=== PATIENT | female | born 1970 | race Caucasian/White ===

== ENCOUNTER 2017-07-15 14:16 | Observation (INO) | payer MEDICARE, MEDICAID ==
[~2017-07-15] VITALS: Ht 157.5 cm; Wt 50.0 kg
[2017-07-15 14:17] VITALS: BP 155/71; PULSE 91; RESP 16; TEMP 98.1; O2SAT 98
[2017-07-15] MEDS ORDERED: SODIUM CHLOR 0.9% 1000 ML INJ 1,000 ML IV SCH (14:58)
[2017-07-15] MEDS ORDERED: ONDANSETRON HCL 4 MG/2 ML VIAL IVP ONE (15:00)
[2017-07-15] MEDS ORDERED: HYDROmorphone HCL PF 2 MG/ML VIAL IV PUSH ONE ×2 (15:00→16:45)
[2017-07-15] MEDS ORDERED: SODIUM CHLORIDE 0.9% FLUSH 10 ML FLUSH IV FLUSH PRN ×2 (15:00→17:00)
[2017-07-15] MEDS ORDERED: ONDA8TAB7 PO (15:03)
[2017-07-15] MEDS ORDERED: AMIT25TA9 PO (15:03)
[2017-07-15] MEDS ORDERED: BACL20TA PO (15:03)
[2017-07-15] MEDS ORDERED: OXYC15TA PO (15:03)
[2017-07-15] MEDS ORDERED: CLON0.5T PO (15:03)
[2017-07-15 15:07] VITALS: O2SAT 100
[2017-07-15 15:08] VITALS: BP 148/87; PULSE 68; RESP 12; O2SAT 100
--- NOTE | 2017-07-15 15:20 | PD ---
HPI Chief Complaint: Abdominal Pain Time Seen by Provider: 14:36 Travel History International Travel<30 days: No Contact w/Intl Traveler<30days: No Traveled to known affect area: No History of Present Illness HPI The patient is a 47-year-old female who presents to the emergency department for a 4 year history of increasing abdominal pain and decreased appetite. The patient has a history of Crohn's disease with previous total colectomy that was performed by Dr. Pratt with subsequent ileostomy. Patient states she has a history of small gut syndrome via the ileostomy, according to the patient. The patient states she's had ongoing pain for the last 8 years, last had an endoscopy performed by physician at [place], [place]. The patient has recently been followed by a physician in [place], [place] and recently had 2 CTs of the abdomen and pelvis, one performed in [place] and one performed in [place], that she states were unremarkable. However, the patient states that her pain and decreased appetite with weight loss or secondary to the umbilical hernia. She has seen Dr. Pratt who planned to fix the umbilical hernia in the near future. However, the patient apparently made comments in regards to hospice and palliative care for ongoing pain with perhaps thoughts of ending it all, therefore, was referred to the emergency department by Dr. Pratt to be evaluated by psychiatry, medically cleared her possible definitive operative management. The patient does note a weight loss, states she has decreased ability to eat with increasing pain upon eating. The patient apparently had a small bowel follow-through which was unremarkable, there is no evidence of stenosis. However, she has not had an endoscopy 8 years. She denies any actual suicidal or homicidal ideation, but does note increasing depression secondary to her persistent pain. PFSH Past Medical History Arthritis: Yes Asthma: Yes Blood Disorders: No Cancer: No Cardiovascular Problems: No Diminished Hearing: Yes (HEARING ONLY 30% OUT OF THE LEFT EAR) Endocrine: No Gastrointestinal Disorders: Yes Genitourinary: No Immune Disorder: No Psychiatric: No Reproductive: No Respiratory: Yes Seizures: Yes Thyroid Disease: Yes (HYPO- RESOLVED) ?: Not LMP: Menopause : 3 Para: 1 Miscarriage: 1 Past Surgical History Appendectomy: Yes Other Surgery: Yes (TUBAL LIGATION-ILLEOSTOMY, TUBAL REMOVAL ) Social History Alcohol Use: No Tobacco Use: Yes (1/2 PPD) Substance Use: No Allergies-Medications (Allergen,Severity, Reaction): Coded Allergies: Penicillins (Verified Allergy, Severe, Rash, 07/15/17) RASH AND PALPITATIONS fentanyl (Verified Allergy, Severe, 07/15/17) SPASMOTIC methadone (Verified Allergy, Severe, Anaphylaxis, 07/15/17) ANAPHYLAXIS AND HIVES tetracycline (Verified Allergy, Severe, Rash, 07/15/17) RASH AND PALPITATIONS Reported Meds & Prescriptions Reported Meds & Active Scripts Active Reported Ondansetron (Ondansetron HCl) 8 Mg Tab 8 Mg PO TID PRN Oxycodone (Oxycodone HCl) 15 Mg Tab 15 Mg PO Q4H Amitriptyline (Amitriptyline HCl) 25 Mg Tab 25 Mg PO HS Clonazepam 0.5 Mg Tab 0.5 Mg PO DAILY PRN Baclofen 20 Mg Tab 20 Mg PO TID Review of Systems Except as stated in HPI: all other systems reviewed are Neg HENT: No: Lightheadedness Cardiovascular: No: Chest Pain or Discomfort Respiratory: No: Shortness of Breath Gastrointestinal: Positive: Nausea, Vomiting, Abdominal Pain, Loss of Appetite , No: Diarrhea Musculoskeletal: Positive: Weakness Psychiatric: Positive: Depression, No: Suicidal Ideations, Homicidal Ideation Physical Exam Narrative GENERAL: Awake, alert, slightly agitated 47-year-old female appears her stated age, slightly cachectic. SKIN: Focused skin assessment warm/dry. HEAD: Atraumatic. Normocephalic. EYES: Pupils equal and round. No scleral icterus. No injection or drainage. ENT: No nasal bleeding or discharge. Mucous membranes pink and moist. NECK: Trachea midline. No JVD. CARDIOVASCULAR: Regular rate and rhythm. No murmur appreciated. RESPIRATORY: No accessory muscle use. Clear to auscultation. Breath sounds equal bilaterally. GASTROINTESTINAL: Abdomen soft, umbilical hernia that is reducible. Well- healed midline scar. Ileostomy intact. MUSCULOSKELETAL: No obvious deformities. No clubbing. No cyanosis. No edema. NEUROLOGICAL: Awake and alert. No obvious cranial nerve deficits. Motor grossly within normal limits. Normal speech. PSYCHIATRIC: Slightly agitated, confrontational, but able to be redirected. Data Data Last Documented VS Vital Signs Date Time Temp Pulse Resp B/P (MAP) Pulse Ox O2 Delivery O2 Flow Rate FiO2 07/15/17 15:08 68 12 148/87 (107) 100 Room Air 07/15/17 14:17 98.1 Orders Orders Complete Blood Count With Diff (07/15/17 14:58) Comprehensive Metabolic Panel (07/15/17 14:58) Lipase (07/15/17 14:58) Lactic Acid (07/15/17 14:58) Urinalysis - C+S If Indicated (07/15/17 14:58) Iv Access Insert/Monitor (07/15/17 14:58) Ecg Monitoring (07/15/17 14:58) Oximetry (07/15/17 14:58) Ondansetron Inj (Zofran Inj) (07/15/17 15:00) Sodium Chlor 0.9% 1000 Ml Inj (Ns 1000 M (07/15/17 14:58) Sodium Chloride 0.9% Flush (Ns Flush) (07/15/17 15:00) Psych Screen (07/15/17 14:58) Hydromorphone Pf Inj (Dilaudid Pf Inj) (07/15/17 15:00) Porphyrins Quant 24hr Urine (07/15/17 15:00) Porphrin Fractionated Plasma (07/15/17 15:00) Hydromorphone Pf Inj (Dilaudid Pf Inj) (07/15/17 16:45) Prochlorperazine Inj (Compazine Inj) (07/15/17 16:45) Labs Laboratory Tests Test 07/15/17 14:45 07/15/17 15:10 07/15/17 16:33 White Blood Count 7.9 TH/MM3 Red Blood Count 4.85 MIL/MM3 Hemoglobin 14.6 GM/DL Hematocrit 42.9 % Mean Corpuscular Volume 88.5 FL Mean Corpuscular Hemoglobin 30.1 PG Mean Corpuscular Hemoglobin Concent 34.0 % Red Cell Distribution Width 16.6 % Platelet Count 410 TH/MM3 Mean Platelet Volume 7.2 FL Neutrophils (%) (Auto) 67.5 % Lymphocytes (%) (Auto) 24.5 % Monocytes (%) (Auto) 4.4 % Eosinophils (%) (Auto) 2.6 % Basophils (%) (Auto) 1.0 % Neutrophils # (Auto) 5.4 TH/MM3 Lymphocytes # (Auto) 1.9 TH/MM3 Monocytes # (Auto) 0.3 TH/MM3 Eosinophils # (Auto) 0.2 TH/MM3 Basophils # (Auto) 0.1 TH/MM3 CBC Comment DIFF FINAL Differential Comment Blood Urea Nitrogen 8 MG/DL Creatinine 0.78 MG/DL Random Glucose 83 MG/DL Total Protein 7.7 GM/DL Albumin 3.8 GM/DL Calcium Level 9.5 MG/DL Alkaline Phosphatase 104 U/L Aspartate Amino Transf (AST/SGOT) 19 U/L Alanine Aminotransferase (ALT/SGPT) 21 U/L Total Bilirubin 0.2 MG/DL Carbon Dioxide Level 26.9 MEQ/L Estimat Glomerular Filtration Rate 79 ML/MIN Lipase 159 U/L Lactic Acid Level 1.1 mmol/L MDM Medical Decision Making Medical Screen Exam Complete: Yes Emergency Medical Condition: Yes Medical Record Reviewed: Yes Interpretation(s) Laboratory Tests Test 07/15/17 14:45 07/15/17 15:10 07/15/17 16:33 White Blood Count 7.9 TH/MM3 Red Blood Count 4.85 MIL/MM3 Hemoglobin 14.6 GM/DL Hematocrit 42.9 % Mean Corpuscular Volume 88.5 FL Mean Corpuscular Hemoglobin 30.1 PG Mean Corpuscular Hemoglobin Concent 34.0 % Red Cell Distribution Width 16.6 % Platelet Count 410 TH/MM3 Mean Platelet Volume 7.2 FL Neutrophils (%) (Auto) 67.5 % Lymphocytes (%) (Auto) 24.5 % Monocytes (%) (Auto) 4.4 % Eosinophils (%) (Auto) 2.6 % Basophils (%) (Auto) 1.0 % Neutrophils # (Auto) 5.4 TH/MM3 Lymphocytes # (Auto) 1.9 TH/MM3 Monocytes # (Auto) 0.3 TH/MM3 Eosinophils # (Auto) 0.2 TH/MM3 Basophils # (Auto) 0.1 TH/MM3 CBC Comment DIFF FINAL Differential Comment Blood Urea Nitrogen 8 MG/DL Creatinine 0.78 MG/DL Random Glucose 83 MG/DL Total Protein 7.7 GM/DL Albumin 3.8 GM/DL Calcium Level 9.5 MG/DL Alkaline Phosphatase 104 U/L Aspartate Amino Transf (AST/SGOT) 19 U/L Alanine Aminotransferase (ALT/SGPT) 21 U/L Total Bilirubin 0.2 MG/DL Carbon Dioxide Level 26.9 MEQ/L Estimat Glomerular Filtration Rate 79 ML/MIN Lipase 159 U/L Lactic Acid Level 1.1 mmol/L Differential Diagnosis Differential diagnosis includes GERD, gastritis, peptic ulcer disease, chronic pancreatitis, retained biliary stone, umbilical hernia, small bowel obstruction. Narrative Course IV was established, labs are drawn and sent, the patient was placed on cardiac telemetry monitoring and continuous pulse oximetry monitoring. During the conversation the patient was somewhat argumentative and confrontational, but was redirectable. After prolonged discussion with the patient was agreed that we could proceed with the physical examination and workup. She was agreeable to psychiatric evaluation after labs were performed and if psychiatric evaluation was performed, and she was deemed competent for surgery, would like to proceed with possible evaluation by Dr. Pratt. I discussed patient with Dr. Pratt who is agreeable to admission to the medical service if psychiatric evaluation is performed and the patient is cleared for possible operative management. Patient was agreeable to this plan of care and disposition. Psychiatry evaluated the patient, she has no current suicidal or homicidal ideation, she was medically cleared by psychiatry. Therefore, patient will be 23 hour observation to the medical service. She may benefit from GI evaluation for possible ERCP/MRCP and/or endoscopy and if these are negative umbilical hernia repair by Dr. Pratt. Physician Communication Physician Communication I discussed patient with Dr. Roy who agrees with 23 hour observation. Diagnosis Primary Impression: Intractable abdominal pain Additional Impression: Umbilical hernia Qualified Codes: K42.9 - Umbilical hernia without obstruction or gangrene Admitting Information Admitting Physician Requests: Observation Condition: Stable Bogdan Cruz MD Jul 15, 2017 15:20
[2017-07-15 15:37] LABS: AUTOMATED NEUTROPHIL # 5.4 TH/MM3 (1.8-7.7); BASOPHIL # 0.1 TH/MM3 (0-0.2); EOSINOPHIL # 0.2 TH/MM3 (0-0.4); EOSINOPHIL % 2.6 % (0.0-4.0); HEMATOCRIT 42.9 % (35.0-46.0); HEMO FLAGS DIFF FINAL; LYMPH % 24.5 % (9.0-44.0); LYMPHOCYTE # 1.9 TH/MM3 (1.0-4.8); MEAN CELL VOLUME 88.5 FL (80.0-100.0); MEAN CORPUSCULAR HEMOGLOBIN 30.1 PG (27.0-34.0); MONO % 4.4 % (0.0-8.0); NEUT % 67.5 % (16.0-70.0); PLATELET COUNT 410 TH/MM3 (150-450); RED BLOOD COUNT 4.85 MIL/MM3 (4.00-5.30); RED CELL DISTRIBUTION WIDTH 16.6 % (11.6-17.2); WHITE BLOOD COUNT 7.9 TH/MM3 (4.0-11.0)
[2017-07-15 16:33] LABS: ALKALINE PHOSPHATASE 104 U/L (45-117); ALT (GPT) 21 U/L (10-53); AST (GOT) 19 U/L (15-37); BICARBONATE 26.9 MEQ/L (21.0-32.0); BLOOD UREA NITROGEN 8 MG/DL (7-18); GLOMERULAR FILTRATION RATE 79 ML/MIN (>89); TOTAL BILIRUBIN ADULT 0.2 MG/DL (0.2-1.0)
[2017-07-15] MEDS ORDERED: PROCHLORPERAZINE INJ 10 MG/2 ML VIAL IV PUSH ONE (16:45)
[2017-07-15 16:52] LABS: BLOOD, URINE NEG (NEG); COMMENT (UR) CULT NOT INDICATED; CULTURE IF INDICATED CULT NOT INDICATED; GLUCOSE,URINE NEG (NEG); KETONE, URINE NEG (NEG); MUCUS URINE FEW /lpf (OCC); NITRITE,URINE NEG (NEG); SQUAMOUS EPITHELIAL CELL URINE <1 /hpf (0-5); URINE COLOR COLORLESS (YELLW/STRAW)
[2017-07-15 16:55] LABS: ANION GAP 4 MEQ/L (5-15); CHLORIDE 109 MEQ/L (98-107); POTASSIUM 3.8 MEQ/L (3.5-5.1); SODIUM (NA) 140 MEQ/L (136-145)
[2017-07-15] MEDS ORDERED: NALOXONE HCL 0.4 MG/ML AMP IV PUSH PRN (17:00)
[2017-07-15] MEDS ORDERED: ONDANSETRON HCL 4 MG/2 ML VIAL IV PUSH PRN (17:15)
[2017-07-15] MEDS ORDERED: HYDROmorphone HCL PF 2 MG/ML VIAL IV PUSH PRN (17:15)
[2017-07-15] MEDS ORDERED: MORPHINE SULFATE 2 MG/ML INJ IV PUSH PRN (19:45)
--- NOTE | 2017-07-15 19:47 | HHI.HP ---
[facility] Unknown Admission Diagnosis intractable abdominal pain, reducible umbilical hernia Diagnoses: Travel History International Travel<30 Days: No Contact w/Intl Traveler <30 Da: No Traveled to Known Affected Are: No History of Present Illness 47-year-old female with a past medical history significant for Crohn's disease and previous diagnosis of bipolar disorder and substance abuse disorder presents to the emergency department under [place] act for suicidal ideation. She was cleared by Dr. Betts. She is not currently having active suicidal ideation. She does report depression from her chronic abdominal pain. She has a 4 year history of increasing abdominal pain and decreased appetite. She reports she can only eat at night after she has completed all the activities of her day because the pain is so great after taking by mouth. 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 Dr. Pratt was her surgeon. She has an umbilical hernia that she believes is causing her pain. Patient was recently followed in [place] where she had 2 CTs of the abdomen/pelvis and an additional CT done in [place] and [place] all of which the patient states were unremarkable. She is admitted for possible scope to be performed by GI to ensure she does not have Crohn's disease and potential umbilical hernia repair by Dr. Pratt. Review of Systems Denies fever or chills Denies blurry vision, otorrhea, rhinorrhea Denies sore throat and cough No chest pain, palpitations, shortness of breath Positive abdominal pain Denies constipation/diarrhea. Positive nausea/vomiting Denies muscle pain/weakness No rashes Past Family Social History Past Medical History Crohn's disease History of bipolar disorder Depression Chronic pain Substance abuse disorder Past Surgical History Colectomy with ileostomy secondary to Crohn's disease approximately 12 years ago Endometriosis Tubal Reported Medications Reported Meds & Active Scripts Active Reported Ondansetron (Ondansetron HCl) 8 Mg Tab 8 Mg PO TID PRN Oxycodone (Oxycodone HCl) 15 Mg Tab 15 Mg PO Q4H Amitriptyline (Amitriptyline HCl) 25 Mg Tab 25 Mg PO HS Clonazepam 0.5 Mg Tab 0.5 Mg PO DAILY PRN Baclofen 20 Mg Tab 20 Mg PO TID Allergies: Coded Allergies: Penicillins (Verified Allergy, Severe, Rash, 07/15/17) RASH AND PALPITATIONS fentanyl (Verified Allergy, Severe, 07/15/17) SPASMOTIC methadone (Verified Allergy, Severe, Anaphylaxis, 07/15/17) ANAPHYLAXIS AND HIVES tetracycline (Verified Allergy, Severe, Rash, 07/15/17) RASH AND PALPITATIONS Family History Father of [place] in his 50s. Social History Smokes a half a pack per day 10 years. No alcohol. Positive marijuana. Physical Exam Vital Signs Vital Signs Date Time Temp Pulse Resp B/P (MAP) Pulse Ox O2 Delivery O2 Flow Rate FiO2 07/15/17 17:57 07/15/17 15:08 68 12 148/87 (107) 100 Room Air 07/15/17 15:07 100 Room Air 07/15/17 14:17 98.1 91 16 155/71 (99) 98 Physical Exam GENERAL: Thin, female sitting up in bed SKIN: No rashes, ecchymoses or lesions. Cool and dry. HEAD: Atraumatic. Normocephalic. No temporal or scalp tenderness. EYES: Pupils equal round and reactive. Extraocular motions intact. No scleral icterus. No injection or drainage. ENT: Nose without bleeding, purulent drainage or septal hematoma. Throat without erythema, tonsillar hypertrophy or exudate. Uvula midline. Airway patent. NECK: Trachea midline. No JVD or lymphadenopathy. Supple, nontender, no meningeal signs. CARDIOVASCULAR: Regular rate and rhythm without murmurs, gallops, or rubs. RESPIRATORY: Left sided expiratory wheezes. GASTROINTESTINAL: Abdomen soft, diffusely tender to palpation, nondistended. No hepato-splenomegaly, or palpable masses. No guarding. Ostomy in place with stool , ostomy site pink. MUSCULOSKELETAL: Extremities without clubbing, cyanosis, or edema. No joint tenderness, effusion, or edema noted. No calf tenderness. NEUROLOGICAL: Awake and alert. Cranial nerves II through XII intact. Motor and sensory grossly within normal limits. Normal speech. Laboratory Laboratory Tests Test 07/15/17 14:45 07/15/17 15:10 07/15/17 16:33 White Blood Count 7.9 Red Blood Count 4.85 Hemoglobin 14.6 Hematocrit 42.9 Mean Corpuscular Volume 88.5 Mean Corpuscular Hemoglobin 30.1 Mean Corpuscular Hemoglobin Concent 34.0 Red Cell Distribution Width 16.6 Platelet Count 410 Mean Platelet Volume 7.2 Neutrophils (%) (Auto) 67.5 Lymphocytes (%) (Auto) 24.5 Monocytes (%) (Auto) 4.4 Eosinophils (%) (Auto) 2.6 Basophils (%) (Auto) 1.0 Neutrophils # (Auto) 5.4 Lymphocytes # (Auto) 1.9 Monocytes # (Auto) 0.3 Eosinophils # (Auto) 0.2 Basophils # (Auto) 0.1 CBC Comment DIFF FINAL Differential Comment Blood Urea Nitrogen 8 Creatinine 0.78 Random Glucose 83 Total Protein 7.7 Albumin 3.8 Calcium Level 9.5 Alkaline Phosphatase 104 Aspartate Amino Transf (AST/SGOT) 19 Alanine Aminotransferase (ALT/SGPT) 21 Total Bilirubin 0.2 Sodium Level 140 Potassium Level 3.8 Chloride Level 109 Carbon Dioxide Level 26.9 Anion Gap 4 Estimat Glomerular Filtration Rate 79 Lipase 159 Lactic Acid Level 1.1 Urine Color COLORLESS Urine Turbidity CLEAR Urine pH 5.0 Urine Specific [place] 1.003 Urine Protein NEG Urine Glucose (UA) NEG Urine Ketones NEG Urine Occult Blood NEG Urine Nitrite NEG Urine Bilirubin NEG Urine Urobilinogen LESS THAN 2.0 Urine Leukocyte Esterase TRACE Urine RBC LESS THAN 1 Urine WBC 1 Urine Squamous Epithelial Cells <1 Urine Amorphous Sediment RARE Urine Mucus FEW Microscopic Urinalysis Comment CULT NOT INDICATED Result Diagram: 07/15/17 1445 07/15/17 1445 Caprini VTE Risk Assessment Caprini VTE Risk Assessment: No/Low Risk (score <= 1) Caprini Risk Assessment Model Point Value = 1 Point Value = 2 Point Value = 3 Point Value = 5 Age 41-60 Minor surgery BMI > 25 kg/m2 Swollen legs Varicose veins or History of unexplained or recurrent spontaneous Oral contraceptives or hormone replacement Sepsis (< 1 month) Serious lung disease, including pneumonia (< 1 month) Abnormal pulmonary function Acute myocardial infarction Congestive heart failure (< 1 month) History of inflammatory bowel disease Medical patient at bed rest Age 61-74 Arthroscopic surgery Major open surgery (> 45 min) Laparoscopic surgery (> 45 min) Malignancy Confined to bed (> 72 hours) Immobilizing plaster cast Central venous access Age >= 75 History of VTE Family history of VTE Factor V Leiden Prothrombin [id number] Lupus anticoagulant Anticardiolipin antibodies Elevated serum homocysteine Heparin-induced thrombocytopenia Other congenital or acquired thrombophilia Stroke (< 1 month) Elective arthroplasty Hip, pelvis, or leg fracture Acute spinal cord injury (< 1 month) Prophylaxis Regimen Total Risk Factor Score Risk Level Prophylaxis Regimen 0-1 Low Early ambulation 2 Moderate Order ONE of the following: *Sequential Compression Device (SCD) *Heparin 5000 units SQ BID 3-4 Higher Order ONE of the following medications: *Heparin 5000 units SQ TID *Enoxaparin/Lovenox 40 mg SQ daily (WT < 150 kg, CrCl > 30 mL/min) *Enoxaparin/Lovenox 30 mg SQ daily (WT < 150 kg, CrCl > 10-29 mL/min) *Enoxaparin/Lovenox 30 mg SQ BID (WT < 150 kg, CrCl > 30 mL/min) AND/OR *Sequential Compression Device (SCD) 5 or more Highest Order ONE of the following medications: *Heparin 5000 units SQ TID (Preferred with Epidurals) *Enoxaparin/Lovenox 40 mg SQ daily (WT < 150 kg, CrCl > 30 mL/min) *Enoxaparin/Lovenox 30 mg SQ daily (WT < 150 kg, CrCl > 10-29 mL/min) *Enoxaparin/Lovenox 30 mg SQ BID (WT < 150 kg, CrCl > 30 mL/min) AND *Sequential Compression Device (SCD) Assessment and Plan Assessment and Plan Assessment/plan: 1. Crohn's disease/chronic abdominal pain/umbilical hernia Patient reports multiple CT scans of the abdomen/pelvis all within normal limits Gastroenterology consulted for possible scope to rule out underlying Crohn's disease and etiology Colorectal surgery, Dr. Pratt consulted, for possible hernia repair Clear liquid diet Morphine for pain 2. History of bipolar disorder/depression/concern for substance abuse Patient cleared by psychiatry for outpatient follow-up Continue home amitriptyline Holding home benzodiazepine/narcotics out of concern for abuse FEN CLD Monitor electrolytes SCDs Bing Johnson MD Jul 15, 2017 19:47
[2017-07-15] MEDS ORDERED: RESP: ALBUTEROL 2.5 MG/IPRATROPIUM 0.5 MG NEB (PRN) NEB (20:00)
[2017-07-15 21:00] VITALS: PULSE 65
[2017-07-15] MEDS ORDERED: AMITRIPTYLINE HCL 25 MG TAB PO SCH (21:00)
[2017-07-15] MEDS ORDERED: PANTOPRAZOLE SODIUM 40 MG VIAL IV PUSH SCH (21:00)
[2017-07-15] MEDS ORDERED: SODIUM CHLORIDE 0.9% FLUSH 10 ML FLUSH IV FLUSH SCH (21:00)
[2017-07-15 21:18] VITALS: BP 117/75; PULSE 61; RESP 16; TEMP 97.9; O2SAT 98
[2017-07-15] MEDS ORDERED: HYDROmorphone HCL PF 2 MG/ML VIAL IV PRN (21:45)
[2017-07-15 23:17] VITALS: BP 115/66; PULSE 56; RESP 17; TEMP 97.9; O2SAT 96
--- NOTE | 2017-07-15 23:20 | HHI.PR ---
Subjective Remarks C/R Surg pt came to ER c/o abd pain - really has been present for years She thinks pain is from small ventral hernia - prob least of her problems Recent events reviewed with nurses/MD Objective - Vital Signs Date Time Temp Pulse Resp B/P (MAP) Pulse Ox O2 Delivery O2 Flow Rate FiO2 07/15/17 21:18 97.9 61 16 117/75 (89) 98 07/15/17 15:08 Room Air Result Diagram: 07/15/17 1445 07/15/17 1445 Objective Remarks PE alert, emotional Abd - soft, hernia stable, min tympany no masses A/P Assessment and Plan Imp: Abd pain - outpt starr so far negative - no Ctohn's Ds seen ?abn of pancreas - cystic areas GI consult - ?EGD, ERCP pain management consult nutritional consult pallaitive care consult Curtis Pratt MD Jul 15, 2017 23:20
[2017-07-16] MEDS ORDERED: BACLOFEN 20 MG TAB PO SCH (09:00)
== END 2017-07-16 00:53 | disposition left against medical advice (07) ==
LOC: NEPC 14:16 → NEDA 17:13 → NEPGCP 17:59
PROVIDERS: ADMIT Internal Medicine; ATTEND Internal Medicine
DX: R10.9 Unspecified abdominal pain (principal); K42.9 Umbilical hernia without obstruction or gangrene; K50.90 Crohn's disease, unspecified, without complications; K91.2 Postsurgical malabsorption, not elsewhere classified; R63.4 Abnormal weight loss; R63.0 Anorexia; J45.909 Unspecified asthma, uncomplicated; M19.90 Unspecified osteoarthritis, unspecified site; Z93.2 Ileostomy status; Z90.49 Acquired absence of other specified parts of digestive tract; F17.210 Nicotine dependence, cigarettes, uncomplicated; F31.9 Bipolar disorder, unspecified
CPT/HCPCS: 80053; 81001; 83605; 83690; 85025; 96374; 96375; 96376; 99285; C9113; G0378; J0780; J1170; J2405; J7030